=== PATIENT | male | born 1990 | race Caucasian/White ===

== ENCOUNTER 2018-09-10 00:10 | Emergency (ER) | payer MEDICAID, OTHER ==
[~2018-09-10] VITALS: Ht 177.8 cm; Wt 102.6 kg
[2018-09-10 00:13] VITALS: Ht 177.8 cm; Wt 102.6 kg
--- NOTE | 2018-09-10 00:49 | ERD ---
ER Documentation Chief Complaint Chief Complaint n/v after eating wendy in the box HPI 28-year-old male, presents to the emergency department, complaining of acute onset of nausea and vomiting after eating fast food. The patient reports approximately 3 episodes during the last 2 hours. He denies abdominal pain, no diarrhea or constipation, no fever or chills, no rashes. No medication taken at this time for the symptoms. ROS All systems reviewed and are negative except as per history of present illness. Medications Home Meds Active Scripts Ondansetron Hcl* (Zofran*) 4 Mg Tablet, 4 MG PO Q8H PRN for NAUSEA AND/OR VOMITING, #12 TAB Prov:EVAN STOVALL MD 09/10/18 Ranitidine Hcl* (Zantac*) 150 Mg Tablet, 150 MG PO BID PRN for EPIGASTRIC PAIN, #6 TAB Prov:EVAN STOVALL MD 09/10/18 Ciprofloxacin Hcl* (Ciprofloxacin Hcl*) 250 Mg Tablet, 250 MG PO BID for 3 Days, #6 TAB Prov:EVAN STOVALL MD 09/10/18 Allergies Allergies: Coded Allergies: No Known Allergy (Unverified , 09/10/18) FmHx Family History: No diabetes, No coronary disease Physical Exam Vitals Vital Signs Date Temp Pulse Resp B/P (MAP) Pulse Ox O2 O2 Flow FiO2 Time Delivery Rate 09/10/18 98.9 88 22 157/98 99 Room Air 02:54 (117) 09/10/18 97.6 72 20 170/97 100 00:13 (121) Physical Exam Const: mild distress, dry oral mucosa Head: Atraumatic Eyes: Normal Conjunctiva ENT: Normal External Ears, Nose and Mouth. Neck: Full range of motion. No meningismus. Resp: Clear to auscultation bilaterally Cardio: Regular rate and rhythm, no murmurs Abd: Soft, non tender, non distended. Normal bowel sounds Skin: No petechiae or rashes Back: No midline or flank tenderness Ext: No cyanosis, or edema Neur: Awake and alert Psych: Normal Mood and Affect Result Diagram: 09/10/187 09/10/18136 Results 24 hrs Laboratory Tests Test 09/10/18 01:37 White Blood Count 14.5 10^3/ul Red Blood Count 5.11 10^6/ul Hemoglobin 15.8 g/dl Hematocrit 45.3 % Mean Corpuscular Volume 88.6 fl Mean Corpuscular Hemoglobin 30.9 pg Mean Corpuscular Hemoglobin Concent 34.9 g/dl Red Cell Distribution Width 11.4 % Platelet Count 235 10^3/UL Mean Platelet Volume 10.1 fl Immature Granulocytes % 0.700 % Neutrophils % 81.2 % Lymphocytes % 10.9 % Monocytes % 5.9 % Eosinophils % 1.0 % Basophils % 0.3 % Nucleated Red Blood Cells % 0.0 /100WBC Immature Granulocytes # 0.100 10^3/ul Neutrophils # 11.8 10^3/ul Lymphocytes # 1.6 10^3/ul Monocytes # 0.9 10^3/ul Eosinophils # 0.2 10^3/ul Basophils # 0.0 10^3/ul Nucleated Red Blood Cells # 0.0 10^3/ul Sodium Level 143 mmol/L Potassium Level 3.7 mmol/L Chloride Level 105 mmol/L Carbon Dioxide Level 26 mmol/L Anion Gap 12 Blood Urea Nitrogen 10 mg/dl Creatinine 0.52 mg/dl Est Glomerular Filtrat Rate mL/min > 60 mL/min Glucose Level 116 mg/dl Calcium Level 9.8 mg/dl Total Bilirubin 0.3 mg/dl Direct Bilirubin 0.00 mg/dl Indirect Bilirubin 0.3 mg/dl Aspartate Amino Transf (AST/SGOT) 29 IU/L Alanine Aminotransferase (ALT/SGPT) 33 IU/L Alkaline Phosphatase 62 IU/L Total Protein 7.7 g/dl Albumin 4.6 g/dl Globulin 3.10 g/dl Albumin/Globulin Ratio 1.48 Lipase 51 U/L Current Medications Medications Dose Sig/Betzaida Start Time Status Last (Trade) Ordered Route PRN Stop Time Admin Dose Reason Admin Sodium 500 ml @ Q1H STAT 09/10/18 DC 09/10/18 Chloride 500 mls/hr IV 00:52 01:44 09/10/18 01:51 Ondansetron 4 mg ONCE STAT 09/10/18 DC 09/10/18 HCl (Zofran IV 00:52 01:44 Inj) 09/10/18 01:01 Famotidine 20 mg ONCE STAT 09/10/18 DC 09/10/18 (Pepcid Iv) IV 00:52 01:44 4/27/19 01:01 Procedures/MDM Physical exam unremarkable, patient in no distress, hydrated, adequate oral intake, abdomen, soft, nontender, no peritoneal signs. Differential diagnosis include but not limited to: gastrointestinal infection bacterial/viral, UTI, appendicitis, colitis, food poisoning, food intolerance. Low suspicion for acute abdomen Physical examination and clinical presentation consistent most likely with acute gastroenteritis. During the ED course the patient remained stable, overall improvement of the symptoms after receiving treatment in the emergency department with IV fluids. Clinical impression discussed with the patient who agrees with management. The patient is stable to be discharged home, Some side effects of prescribed medications (headache, rash, nausea, vomiting, diarrhea, interactions with other medications) were reviewed. The patient requires a follow up with the primary care provider in the next 48h. If symptoms persist, worsen or new symptoms develop, then patient should return to the ED immediately. Disclaimer: Inadvertent spelling and grammatical errors are likely due to EHR/dictation software use and do not reflect on the overall quality of patient care. Also, please note that the electronic time recorded on this note does not necessarily reflect the actual time of the patient encounter. Departure Diagnosis: Primary Impression: Acute gastroenteritis Condition: Stable Additional Instructions: Thank you very much for allowing us to participate in your care. Your health and safety is our top priority at [facility]. The evaluation in the emergency department has been done to rule out an acute emergency, therefore, chronic conditions like malignancy or other diseases have not been evaluated; therefore, you need to follow up with a primary care provider in the next 48h. If symptoms persist, worsen or new symptoms develop, then patient should return to the ED immediately. Call your primary care doctor TOMORROW for an appointment during the next 2-4 days and bring all the information provided. Have prescriptions filled and follow precisely the directions on the label. If the symptoms get worse and your provider is unavailable, return to the Emergency Department immediately. EVAN STOVALL MD Sep 10, 2018 00:49
[2018-09-10] MEDS ORDERED: SOD CHLORIDE 0.9% 500 ML IV STA (00:52)
[2018-09-10] MEDS ORDERED: FAMOTIDINE 20 MG INJ IV STA (00:52)
[2018-09-10] MEDS ORDERED: ONDANSETRON 4 MG INJ IV STA (00:52)
[2018-09-10] MEDS ORDERED: ONDA4TAB8 PO (02:51)
[2018-09-10] MEDS ORDERED: RANI150T35 PO (02:51)
[2018-09-10] MEDS ORDERED: CIPR-193 PO (02:51)
[2018-09-10 02:54] VITALS: BP 157/98; PULSE 88; RESP 22
== END 2018-09-10 02:57 | disposition home or self-care (01) ==
LOC: EDBD 00:10 → FTE 00:10
DX: K52.9 Noninfective gastroenteritis and colitis, unspecified (principal)
CPT/HCPCS: 36415; 80053; 83690; 85025; 96361; 96374; 96375; J2405; J7040; Z7502; Z7610